=== PATIENT | male | born 2000 | race Caucasian/White ===

== ENCOUNTER 2019-08-31 16:11 | Emergency (ER) | payer SELFPAY ==
[~2019-08-31] VITALS: Ht 172.7 cm; Wt 59.0 kg
[2019-08-31] MEDS ORDERED: ELIM5CRE2 TOP (17:47)
[2019-08-31] MEDS ORDERED: PRED20TA PO (17:47)
[2019-08-31] MEDS ORDERED: PEPC1TAB5 PO (17:47)
[2019-08-31 18:07] VITALS: BP 143/86
== END 2019-08-31 18:08 | disposition home or self-care (01) ==
LOC: M ED 16:11
DX: L20.9 Atopic dermatitis, unspecified (principal)